=== PATIENT | male | born 1960 | race Caucasian/White ===

== ENCOUNTER 2021-10-19 02:57 | Day surgery (SDC) | payer BC, SELFPAY ==
[2021-09-08 14:51] VITALS: BMI 28.3
[2021-10-09 10:45] VITALS: BMI 28.3
[2021-10-19 09:16] VITALS: BP 121/75; PULSE 72; RESP 18; TEMP 36.4; O2SAT 100; BMI 26.2
[2021-10-19] MEDS: LACTATED RINGERS 1,000 ML 150 ML IV CONT (09:24)
--- NOTE | 2021-10-19 09:32 | P.PNAN_ITS ---
Anes - Initial Pre Proc Eval Procedure: Operation Date: 10/19/21 10:30 Proposed Procedures p Screening Colonoscopy - Clarke Ellis MD Date/Time: 10/19/21 09:32 Surgeon: Clarke Ellis MD Pre Op Diagnosis: neoplasm screening Patient Data Age: 61 Gender: M Height: 1.88 m Weight: 92.5 kg Last Vital Signs Temp 36.4 C L 10/19/21 09:16 Pulse 72 10/19/21 09:16 Resp 18 10/19/21 09:16 BP 121/75 10/19/21 09:16 Pulse Ox 100 10/19/21 09:16 Allergies Allergy/AdvReac Type Severity Reaction Status Date / Time Cephalosporins Allergy Unknown Unknown Verified 10/19/21 09:15 Home Medications Medication Instructions Recorded Confirmed Type No Home Medications 07/21/21 10/09/21 History Patient hx anesthesia problems: none Family hx anesthesia problems: none Results Review: All pre-operative results and documents have been reviewed as part of the pre-operative evaluation. [facility] Past Medical History Medical History (Updated 10/19/21 @ 07:38 by Pj Hernandez DO) Basal cell carcinoma Hyperlipidemia Surgical History Surgical History H/O colonoscopy with polypectomy 2009-polyps 2014 Family History Family History Mother Alcoholism Lung cancer Father Diabetes mellitus Heart disease Social History Social History Smoking status: Former smoker Tobacco type: smokeless tobacco Smokeless tobacco user: chewing tobacco Alcohol intake: current Drinks per week: 10 Substance use: never Living arrangements: with family Spiritual care concerns: No Agree to blood products: Yes Anes - Eval Final PreProcedure Day of Procedure 10/19/21 09:32 Patient weight: overweight Heart: regular rate and rhythm Lungs: clear to auscultation and normal air movement Airway: Mallampati scale class II Neurological: alert and oriented Last oral intake: >/= 8 hours ASA classification: II Emergent: no Anesthetic plan: proceed Anesthesia type and monitoring: general GIVS and standard monitoring Results Review: All pre-operative results and documents have been reviewed as part of the pre-operative evaluation. Informed Consent: The patient's anesthetic plan and its attendant risks and benefits were discussed with the patient/family/POA. Questions were solicited and answers provided to the satisfaction of the patient/family/POA.
--- NOTE | 2021-10-19 09:54 | PM.HPGS ---
History of Present Illness History of Present Illness Consent: Risks, benefits, and alternatives have been discussed and questions answered. Patient agrees to proceed with procedure. Chief complaint: neoplasm screening Narrative: Bart Asencio is a 61 year old male here for screening colonoscopy, he already had 2 and had polyp during his first colonoscopy. Last one was 5 years ago. Review of Systems Constitutional: Constitutional: Denies headache(s) and Denies weakness Eyes: Eyes: Denies blurry vision ENT: Reports Normal hearing present, Denies headache(s) and Denies neck pain Cardiovascular: Cardiovascular: Denies chest pain and Denies dyspnea Respiratory: Respiratory: Denies dyspnea Gastrointestinal: Gastrointestinal: Reports no additional gastrointestinal complaints Genitourinary: Genitourinary: Denies dysuria Musculoskeletal: Musculoskeletal: Denies neck pain Integumentary/Breasts: Skin/Breast: Denies dry skin Neurologic: Reports Normal hearing present, Denies headache(s) and Denies weakness Psychiatric: Psychiatric: Denies anxiety Endocrine: Endocrine: Denies change in body appearance Hematologic/Lymphatic: Hematologic/Lymphatic: Denies easy bleeding Allergic/Immunologic: Allergic/Immunologic: Denies urticaria PMFSH Past Medical History Medical History (Updated 10/19/21 @ 07:38 by Pj Hernandez DO) Basal cell carcinoma Hyperlipidemia Surgical History Surgical History H/O colonoscopy with polypectomy 2009-polyps 2014 Family History Family History Mother Alcoholism Lung cancer Father Diabetes mellitus Heart disease Social History Social History Smoking status: Former smoker Tobacco type: smokeless tobacco Smokeless tobacco user: chewing tobacco Alcohol intake: current Drinks per week: 10 Substance use: never Living arrangements: with family Spiritual care concerns: No Agree to blood products: Yes Meds Home Medications and Allergies Home Medications Medication Instructions Recorded Confirmed Type No Home Medications 07/21/21 10/09/21 History Allergies Allergy/AdvReac Type Severity Reaction Status Date / Time Cephalosporins Allergy Unknown Unknown Verified 10/19/21 09:15 Vital Signs Vital Signs - 24 hr 10/19/21 09:16 Temperature 97.5 F L Pulse Rate 72 Respiratory Rate 18 Blood Pressure 121/75 Pulse Oximetry 100 Exam Const: General: comfortable and no acute distress HENMT: General nose exam: Normal nares present Eyes: General: appearance normal, both eyes and all related structures Neck: Neck: no JVD Resp: Auscultation: clear to auscultation bilaterally Cardio: Rate: regular rate Rhythm: regular rhythm GI: Inspection: non-distended GI Palp: Yes Soft to palpation Skin: General skin exam: normal color Neuro: General: gait normal Speech: normal speech Extrem: General: normal to inspection Psych: Mental Status: mental status grossly normal Assessment and Plan Assessment and plan (1) Screening for colon cancer: Code(s): Z12.11 - Encounter for screening for malignant neoplasm of colon Status: Acute Assessment and Plan: colonoscopy
[2021-10-19 10:12] VITALS: BP 107/69; PULSE 66; RESP 20; O2SAT 100
[2021-10-19 10:22] VITALS: BP 119/81; PULSE 60; RESP 20; O2SAT 100
[2021-10-19 10:32] VITALS: BP 121/81; PULSE 60; RESP 20; O2SAT 100
== END 2021-10-19 11:27 | disposition home or self-care (01) ==
PROVIDERS: PCP Family Medicine; Visit Provider Internal Medicine Gastroenterology
PROC: 0DJD8ZZ Inspection of Lower Intestinal Tract, Via Natural or Artificial Opening Endoscopic (ICD-10-PCS; CPT 45378; principal; 2021-10-19 10:30)
DX: Z12.11 Encounter for screening for malignant neoplasm of colon (principal); K64.8 Other hemorrhoids; Z86.010 Personal history of colon polyps; F17.220 Nicotine dependence, chewing tobacco, uncomplicated
CPT/HCPCS: 45378; J2704; J7120